=== PATIENT | female | born 1935 | race Caucasian/White ===

== ENCOUNTER → 2018-08-23 | Outpatient (CLI) | payer OTHER | LOC: M.RAD 15:18 | DX: E28.39 Other primary ovarian failure (principal); Z78.0 Asymptomatic menopausal state ==

== ENCOUNTER 2019-02-02 15:38 | Emergency (ER) | payer OTHER ==
[~2019-02-02] VITALS: Ht 162.6 cm; Wt 71.2 kg
[2019-02-02] MEDS ORDERED: KEFLEX500 M1 PO (17:11)
[2019-02-02 17:26] VITALS: BP 162/68
== END 2019-02-02 17:26 | disposition home or self-care (01) ==
LOC: M.ERS 15:38
DX: S01.01XA Laceration without foreign body of scalp, initial encounter (principal); M25.562 Pain in left knee; W18.39XA Other fall on same level, initial encounter; Y93.01 Activity, walking, marching and hiking; Y92.480 Sidewalk as the place of occurrence of the external cause; Y99.8 Other external cause status

== ENCOUNTER → 2020-02-14 | Outpatient (CLI) | payer OTHER ==
[~2020-02-14] MED LIST: KEFLEX500 M1 PO
== END ==
LOC: M.ULTRA 09:53
PROVIDERS: ATTEND Specialist
DX: N18.3 Chronic kidney disease, stage 3 (moderate) (principal)

== ENCOUNTER 2020-09-13 10:45 | Emergency (ER) | payer OTHER ==
[~2020-09-13] VITALS: Ht 162.6 cm; Wt 68.0 kg
[2020-09-13] MEDS ORDERED: ASA81BEC PO (10:52)
[2020-09-13] MEDS ORDERED: VITAMIN B-6100 MG PO (10:52)
[2020-09-13] MEDS ORDERED: KLOR-CON M2020 MEQ PO (10:52)
[2020-09-13] MEDS ORDERED: VITAMIN B-121000 MC2 SUBLING (10:52)
[2020-09-13] MEDS ORDERED: VITAMIN D3-ALO1 EACH PO (10:53)
[2020-09-13] MEDS ORDERED: LEVO-T100 MCG PO (10:53)
[2020-09-13] MEDS ORDERED: FOSAMAX 70 MG T70 MG PO (10:53)
[2020-09-13] MEDS ORDERED: FUROSEMIDE 20 M20 MG PO (10:53)
[2020-09-13] MEDS ORDERED: MEMANTINE HCL10 MG PO (10:54)
[2020-09-13] MEDS ORDERED: LOPRESSOR50 MG PO (10:54)
[2020-09-13 11:15] LABS: ABSOLUTE EOSINOPHILS 0.2 thou/uL (0.0-0.7); ABSOLUTE LYMPHOCYTES 2.6 thou/uL (0.8-5.3); ABSOLUTE NEUTROPHILS 4.7 thou/uL (1.6-8.1); BASOPHILS 0.5 %; HEMATOCRIT 45.3 % (37.0-47.0); HEMOGLOBIN 15.5 gm/dL (12.0-15.0); LYMPHOCYTES 30.9 %; MCH 30.2 pg (26.0-34.0); MCHC 34.3 g/dL (28.0-37.0); MCV 88.1 fL (80.0-100.0); MONOCYTES 11.4 %; MPV 9.5 fl. (7.2-11.1); NUCLEATED RBCS 0 /100WBC; PLATELET COUNT* 291 thou/uL (150-400); POLYS 55.2 %; RBC 5.14 mil/uL (4.20-5.00); RDW-CV 14.1 % (10.5-14.5); WBC 8.5 thou/uL (4.0-11.0)
[2020-09-13 11:59] LABS: CALCIUM 8.5 mg/dL (8.5-10.1); CREATININE 1.4 mg/dL (0.6-1.3); POTASSIUM 4.5 mmol/L (3.5-5.1)
[2020-09-13 12:01] LABS: PROTIME 10.4 Seconds (9.20-11.50)
[2020-09-13 12:03] LABS: ALBUMIN 3.1 g/dL (3.4-5.0); MAGNESIUM 2.4 mg/dL (1.8-2.4); TOTAL BILIRUBIN 0.5 mg/dL (<0.1-1.0)
[2020-09-13 14:05] VITALS: BP 129/61
--- NOTE | 2020-09-13 15:04 | EKG ---
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: : 1935 Requested By: Sukumar Zimmer Order Number: [id number] MD: Tino Robles Measurements Intervals [place] Rate: 61 P: -20 [place]: 204 QRS: -32 QRSD: 152 T: 28 QT: 460 QTc: 464 Interpretive Statements Sinus rhythm Right bundle branch block Probable left ventricular hypertrophy Baseline wander in lead(s) II,III,aVF Compared to ECG 09/11/2007 20:07:16 Left-axis deviation no longer present ST (T wave) deviation no longer present Electronically Signed On 09-13-2020 15:04:16 CDT by Tino Robles [email or web address] <ELECTRONICALLY SIGNED> By: Tino Robles MD, [facility] 09/13/20 1504 1054 1054 Tino Robles MD, [facility] /EPI
== END 2020-09-13 14:05 | disposition home or self-care (01) ==
LOC: M.ERS 10:45
PROVIDERS: Emergency Medicine Emergency Medical Services
DX: R00.2 Palpitations (principal); I10 Essential (primary) hypertension; E03.9 Hypothyroidism, unspecified; Z95.1 Presence of aortocoronary bypass graft

== ENCOUNTER 2021-03-24 22:38 | Inpatient (IN) | payer OTHER ==
[~2021-03-24] VITALS: Ht 162.6 cm; Wt 64.6 kg
--- NOTE | ~2021-03-24 | PROC ---
[address] [address] PROCEDURE REPORT Name: BENIGNO RUSSELL Room: [address] ADM IN M.R.#: [id number] Admission: 03/25/21 Attend Phys: Melony Pate MD Discharge: Date of : 39 Report #: [id number] THIS REPORT FOR: cc: Junior Oates. Sourav Rodrigues MD [facility],Medical Records Staff ~ For GI report, please see the Provation report in Perceptive 7 content. By: 0656Medical Records Staff YOHANNES /AZUL
[~2021-03-24 22:38] MED LIST changes: +ASA81BEC PO; +FOSAMAX 70 MG T70 MG PO; +FUROSEMIDE 20 M20 MG PO; +KLOR-CON M2020 MEQ PO; +LEVO-T100 MCG PO; +LOPRESSOR50 MG PO; +MEMANTINE HCL10 MG PO; +VITAMIN B-121000 MC2 SUBLING; +VITAMIN B-6100 MG PO; +VITAMIN D3-ALO1 EACH PO
[2021-03-24 22:40] VITALS: BP 125/58
[2021-03-24] MEDS ORDERED: TYLENOL PO (22:48)
[2021-03-24] MEDS ORDERED: VITAMIN D325 MC2 PO (22:49)
[2021-03-24] MEDS ORDERED: MIRALAX119 GM PO (22:50)
[2021-03-24] MEDS ORDERED: LISINOPRIL5 MG PO (22:50)
[2021-03-24] MEDS ORDERED: CVS SENNA PLUS1 EACH PO (22:51)
[2021-03-24] MEDS ORDERED: PREPARATION H26 GM TOP (22:52)
[2021-03-24 23:04] LABS: ABSOLUTE EOSINOPHILS 0.1 thou/uL (0.0-0.7); ABSOLUTE LYMPHOCYTES 2.2 thou/uL (0.8-5.3); ABSOLUTE MONOCYTES 0.9 thou/uL (0.0-1.2); ABSOLUTE NEUTROPHILS 4.6 thou/uL (1.6-8.1); BASOPHILS 0.5 %; EOSINOPHILS 1.7 %; HEMATOCRIT 39.8 % (37.0-47.0); HEMOGLOBIN 13.5 gm/dL (12.0-15.0); LYMPHOCYTES 27.8 %; MCH 29.5 pg (26.0-34.0); MCHC 33.9 g/dL (28.0-37.0); MCV 87.2 fL (80.0-100.0); MONOCYTES 11.8 %; MPV 7.6 fl. (7.2-11.1); NUCLEATED RBCS 0 /100WBC; PLATELET COUNT* 225 thou/uL (150-400); POLYS 58.2 %; RBC 4.56 mil/uL (4.20-5.00); RDW-CV 14.6 % (10.5-14.5); WBC 7.9 thou/uL (4.0-11.0)
[2021-03-24 23:14] LABS: PROTIME 10.4 Seconds (9.20-11.50)
[2021-03-24 23:15] LABS: CREATININE 1.1 mg/dL (0.6-1.3); POTASSIUM 4.2 mmol/L (3.5-5.1)
[2021-03-24 23:19] LABS: ALBUMIN 2.9 g/dL (3.4-5.0); TOTAL BILIRUBIN 0.4 mg/dL (<0.1-1.0); TOTAL PROTEIN 6.2 g/dL (6.4-8.2)
[2021-03-25 00:09] LABS: URINE BILIRUBIN NEGATIVE (Negative); URINE BLOOD 3+ (Negative); URINE CLARITY CLEAR; URINE COLOR YELLOW; URINE GLUCOSE-RANDOM NEGATIVE (Negative); URINE KETONES NEGATIVE (Negative); URINE LEUKOCYTES-REFLEX 1+ (Negative); URINE NITRITE-REFLEX NEGATIVE (Negative); URINE PROTEIN NEGATIVE (Negative); URINE SPECIFIC GRAVITY <= 1.005 (1.005-1.030); URINE UROBILINOGEN 0.2 E.U./dl (0.2-1.0)
[2021-03-25 00:53] LABS: CASTS None Seen /LPF (None Seen); SQUAMOUS >10 Many /LPF (0-3); URINE RBC 0-2 Rare /HPF (0-2); URINE WBC-REFLEX 6-15 Few /HPF (0-5)
[2021-03-25 00:54] LABS: BACTERIA-REFLEX >30 Many /HPF (None Seen); CRYSTALS None Seen /LPF (None Seen)
[2021-03-25 02:15] VITALS: BP 118/80
[2021-03-25 02:34] VITALS: BP 145/83
[2021-03-25 08:00] VITALS: BP 122/58
--- NOTE | 2021-03-25 10:16 | NUR ---
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 SHE IS ABLE TO COMMUNICATE HER NEEDS TO STAFF WITH MINOR DIFFICULTY; SHE HAS A HX OF DEMENTIA AND IS FORGETFUL/ CONFUSED AT TIMES. SHE HAS DENIED THE NEED FOR PAIN MEDICATION UP TO 0700 TODAY. SHE HAS BEEN NPO SINCE ADMIT FOR GI BLEED AND GI CONSULT.
--- NOTE | 2021-03-25 10:30 | NUR ---
CM ASSESSMENT: CM ATTEMPTED TO SPEAK TO THE PT TO COMPLETE CM ASSESSMENT. HOWEVER PT CONFUSED AND ANSWERING MOST QUESTIONS 'I DON'T KNOW'. REVIEW OF PT'S CHART INDICATES THAT THE PT RESIDES AT [facility]. CM SPOKE TO DELIA WITH [facility] AND SHE CONFIRMS THAT THE PT IS A LTC RESIDENT AT THE FACILITY AND IS CONFUSED AND FORGETFUL AT BASELINE. PT USES A WALKER FOR MOBILITY AND IS ABLE TO FEED HERSELF. PLAN FOR PT TO RETURN TO HER LTC BED A OGNR AT D/C AND THE PT WILL NEED A RAPID COVID TEST AT D/C. CM WILL REMAIN AVAILABLE TO ASSIST AND FOLLOW NEEDED. [facility] PHONE: [phone] FAX: [phone]
[2021-03-25 11:43] LABS: HEMATOCRIT 37.5 % (37.0-47.0); HEMOGLOBIN 12.7 gm/dL (12.0-15.0); MCH 29.3 pg (26.0-34.0); MCHC 33.7 g/dL (28.0-37.0); MCV 86.8 fL (80.0-100.0); MPV 7.3 fl. (7.2-11.1); RBC 4.33 mil/uL (4.20-5.00); RDW-CV 14.5 % (10.5-14.5); WBC 6.1 thou/uL (4.0-11.0)
--- NOTE | 2021-03-25 12:20 | EKG ---
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[place] : 1935 Requested By: Herminia Das Order Number: [id number] MD: Tino Robles Measurements Intervals [place] Rate: 64 P: -11 [place]: 215 QRS: -32 QRSD: 161 T: -13 QT: 454 QTc: 469 Interpretive Statements Sinus rhythm Borderline prolonged [place] interval Right bundle branch block Probable left ventricular hypertrophy Compared to ECG 09/13/2020 10:54:43 No significant changes Electronically Signed On 03-25-2021 12:20:05 CDT by Tino Robles [email or web address] <ELECTRONICALLY SIGNED> By: Tino Robles MD, [facility]ACC 03/25/21 1220 35 223 Tino Robles MD, FACC /EPI
[2021-03-25 12:56] VITALS: BP 124/59
[2021-03-25 17:07] VITALS: BP 109/54
[2021-03-25 21:14] VITALS: BP 139/52
[2021-03-26] VITALS: BP 129/60
[2021-03-26 04:00] VITALS: BP 119/52
[2021-03-26 05:33] LABS: HEMATOCRIT 39.1 % (37.0-47.0); HEMOGLOBIN 12.8 gm/dL (12.0-15.0); MCH 28.8 pg (26.0-34.0); MCHC 32.8 g/dL (28.0-37.0); MCV 87.9 fL (80.0-100.0); RBC 4.45 mil/uL (4.20-5.00); RDW-CV 14.7 % (10.5-14.5); WBC 7.6 thou/uL (4.0-11.0)
[2021-03-26 05:41] LABS: ALBUMIN 2.7 g/dL (3.4-5.0); CALCIUM 7.7 mg/dL (8.5-10.1); POTASSIUM 3.7 mmol/L (3.5-5.1); TOTAL BILIRUBIN 0.6 mg/dL (<0.1-1.0); TOTAL PROTEIN 5.7 g/dL (6.4-8.2)
[2021-03-26 08:01] VITALS: BP 105/52
--- NOTE | 2021-03-26 08:33 | NUR ---
PT IS ABLE TO COMMUNICATE HER NEEDS TO STAFF WITH SOME DIFFICULTY; SHE IS OFTEN CONFUSED, FORGETFUL, AND IMPULSIVE. CURRENT PAIN MEDICATION REGIMEN HAS BEEN ADEQUATE FOR CONTROLLING HER PAIN UP TO 0700 THIS MORNING. INITIAL STAGES OF BOWEL PREP, FOR A POSSIBLE COLONOSCOPY ON 03/27, BEGUN; PT UP TO BSC SEVERAL TIMES OVERNIGHT. CLEAR LIQUID DIET AT THIS TIME.
[2021-03-26 11:59] VITALS: BP 107/50
--- NOTE | 2021-03-26 12:04 | NUR ---
WOUND NURSE: PATIENT WITH RED PATCHY RASH BETWEEN GLUTEAL FOLDS CHARACTERISTIC OF YEAST. RECOMMEND TOPICAL APPLICATION OF 50/50 MIXTURE OF NYSTATIN POWDER WITH Z-GUARD MOISTURE BARRIER PASTE 2X/DAY.
--- NOTE | 2021-03-26 14:42 | NUR ---
PLAN OF CARE: PHYSICIAN INFORMS OF PLAN FOR THE PT TO HAVE COLONOSCOPY TOMORROW. PT REMAINS ON IV ABT'S. PLAN FOR THE PT TO RETURN TO HER LTC BED AT [facility] WHEN MEDICALLY STABLE. CM WILL REMAIN AVAILABLE TO ASSIST AND FOLLOW NEEDED.
--- NOTE | 2021-03-26 15:37 | EKG ---
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
[2021-03-26 18:56] VITALS: BP 113/44
[2021-03-26 22:20] VITALS: BP 149/62
[2021-03-27] VITALS (8 sets, daily range): BP systolic 110–143; BP diastolic 48–68
[2021-03-27 04:33] LABS: ABSOLUTE BASOPHILS 0.1 thou/uL (0.0-0.2); ABSOLUTE EOSINOPHILS 0.3 thou/uL (0.0-0.7); ABSOLUTE LYMPHOCYTES 3.2 thou/uL (0.8-5.3); ABSOLUTE MONOCYTES 0.8 thou/uL (0.0-1.2); ABSOLUTE NEUTROPHILS 4.9 thou/uL (1.6-8.1); BASOPHILS 0.7 %; EOSINOPHILS 3.1 %; HEMATOCRIT 38.9 % (37.0-47.0); LYMPHOCYTES 35.2 %; MCH 29.4 pg (26.0-34.0); MCHC 33.5 g/dL (28.0-37.0); MCV 87.9 fL (80.0-100.0); MONOCYTES 8.4 %; MPV 7.8 fl. (7.2-11.1); NUCLEATED RBCS 0 /100WBC; PLATELET COUNT* 289 thou/uL (150-400); POLYS 52.6 %; RBC 4.43 mil/uL (4.20-5.00); RDW-CV 14.9 % (10.5-14.5); WBC 9.2 thou/uL (4.0-11.0)
[2021-03-27 05:10] LABS: ALBUMIN 2.8 g/dL (3.4-5.0); CALCIUM 7.9 mg/dL (8.5-10.1); CREATININE 0.9 mg/dL (0.6-1.3); MAGNESIUM 2.1 mg/dL (1.8-2.4); POTASSIUM 3.5 mmol/L (3.5-5.1); TOTAL BILIRUBIN 0.6 mg/dL (<0.1-1.0); TOTAL PROTEIN 6.2 g/dL (6.4-8.2)
--- NOTE | 2021-03-27 09:40 | NUR ---
Nutrition: Pt admitted with GIB, UTI. Consult for GIB. Pt from LTC. Dementia, HTN, CAD. Ate 100% yday. NPO for colonoscopy today. Wt: 142#. Labs: Hgb WNL, alb 2.8, prealb 13.8. Pt is poor historian. No N/V. Nutritionally stable at this time. GOALS: diet to advance as appropriate. Mild to low risk.
--- NOTE | 2021-03-27 10:23 | NUR ---
ASSUMED CARE OF PT AT 0730. PT A&[id number] ONLY. HISTORY DEMENTIA NOTED. PT CONFUSED, FORGETFUL AND IMPULSIVE. PT NPO FOR EGD/COLON TODAY. THIS RN ALONG WITH PROPAGATION WORKER, RIMA, SPOKE WITH SON-REGIS GIRISH AND RECEIVED VERBAL CONSENT FOR EGD/COLON AND POSSIBLE BLOOD TRANSFUSION IF INDICATED. PT TRACING SB ON THE WET PAN OPERATOR. ON RA SAT UPPER 90'S. DENIES ANY SHORTNESS OF BREATH OR PAIN AT THIS TIME. PT UP WITH 1 ASSIST TO BSC. GI CONSULT IN PLACE. PT GOAL FOR TODAY IS COMPLETE EGD /COLON AND GI RECS AFTER. AM ASSESSMENT CHARTED. MEDICATIONS PER AUG. PT REPOSITIONED EVERY 2 HOURS FOR COMFORT. HOURLY ROUNDING OBSERVED. BED IN LOW POSITION. BED ALARM IN PLACE. FALL PRECAUTIONS IN PLACE. CALL LIGHT WITHIN REACH. WILL CONTINUE PLAN OF CARE.
--- NOTE | 2021-03-27 12:46 | NUR ---
PLAN OF CARE: PHYSICIAN INFORMS OF PLAN FOR PT TO HAEV EGD/COLONOSCOPY TODAY. PLAN REMAINS FOR THE PT TO RETURN TO HER LTC BED AT [facility] WHEN MEDICALLY STABLE. CM WILL REMAIN AVAILABLE TO ASSIST AND FOLLOW NEEDED.
--- NOTE | 2021-03-28 04:21 | NUR ---
PT A&O X 2, FORGETFUL. ON RA. MEDS GIVEN ORDERED. NO C/O PAIN. UP TO BR WITH SBA. BED ALARM ON FOR SAFETY. CALL LIGHT WITHIN REACH. WILL CONTINUE TO MONITOR.
[2021-03-28 08:00] VITALS: BP 113/57
[2021-03-28] MEDS ORDERED: LEVOFLOXACIN500 MG PO (08:43)
[2021-03-28 09:08] VITALS: BP 113/57
--- NOTE | 2021-03-28 11:58 | NUR ---
ASSUMED PT CARE AT 0730, PT AOX2, CONFUSED AND VERY FORGETFUL. UP SBA, WORKED W/ DR FLEMING AND DC ORDERS RECEIVED. IV REMOVED. PT DC'D BY KIMBER W/ TRANSPORTER FROM [facility] W/ ALL PAPERWORK AND PERSONAL BELONGINGS AT APPROX 1150
--- NOTE | 2021-03-28 12:48 | NUR ---
PLAN FOR THE PT TO D/C BACK TO HER LTC BED AT [facility]. CM SPOKE TO THE PT AND HER DIL TO INFORM OF THIS AND BOTH ARE IN AGREEMENT. CM FAXED D/C ORDERS AND RN INFORMED OF WHERE TO CALL REPORT. CM WILL REMAIN AVAILABLE TO ASSIST AND FOLLOW NEEDED. [facility] PHONE: [phone] FAX: [phone]
== END 2021-03-28 11:53 | DRG 378 ==
LOC: M.ERS 22:38 → M.2W 23:46 → M.TBA-ER 23:46 → M.2W 03-25 02:22
PROVIDERS: Emergency Medicine; Internal Medicine Gastroenterology; ADMIT Internal Medicine; ATTEND Internal Medicine
PROC: 0DJ08ZZ Inspection of Upper Intestinal Tract, Via Natural or Artificial Opening Endoscopic (ICD-10-PCS; principal; 2021-03-27)
PROC: 0DJD8ZZ Inspection of Lower Intestinal Tract, Via Natural or Artificial Opening Endoscopic (ICD-10-PCS; 2021-03-27)
DX: K92.2 Gastrointestinal hemorrhage, unspecified (principal); E87.1 Hypo-osmolality and hyponatremia; N39.0 Urinary tract infection, site not specified; E44.1 Mild protein-calorie malnutrition; K55.9 Vascular disorder of intestine, unspecified; K64.4 Residual hemorrhoidal skin tags; K57.30 Diverticulosis of large intestine without perforation or abscess without bleeding; I10 Essential (primary) hypertension; I71.4 Abdominal aortic aneurysm, without rupture; K44.9 Diaphragmatic hernia without obstruction or gangrene; R13.10 Dysphagia, unspecified; K59.00 Constipation, unspecified; I25.10 Atherosclerotic heart disease of native coronary artery without angina pectoris; E03.9 Hypothyroidism, unspecified; F03.90 Unspecified dementia, unspecified severity, without behavioral disturbance, psychotic disturbance, mood disturbance, and anxiety; Z20.822 Contact with and (suspected) exposure to COVID-19; Z68.24 Body mass index [BMI] 24.0-24.9, adult; Z79.899 Other long term (current) drug therapy; Z95.1 Presence of aortocoronary bypass graft; Z80.0 Family history of malignant neoplasm of digestive organs